=== PATIENT | male | born 1960 | race African-American/Black ===

== ENCOUNTER → 2020-12-28 08:01 | Outpatient (CLI) | payer OTHER | END | disposition home or self-care (01) | LOC: D.NM 08:01 | PROVIDERS: ATTEND Internal Medicine Gastroenterology | DX: K21.9 Gastro-esophageal reflux disease without esophagitis (principal); R68.81 Early satiety; R10.13 Epigastric pain ==

== ENCOUNTER → 2021-01-08 09:26 | Outpatient (CLI) | payer OTHER | END | disposition home or self-care (01) | LOC: D.CT 09:26 | PROVIDERS: ATTEND Internal Medicine Gastroenterology | DX: K55.9 Vascular disorder of intestine, unspecified (principal) ==